=== PATIENT | male | born 1955 | race Caucasian/White ===

== ENCOUNTER 2016-12-18 11:34 | Observation (INO) | payer BC ==
[~2016-12-18] VITALS: Ht 190.5 cm; Wt 156.4 kg
[2016-12-18 12:51] LABS: BASO # 0.1 (0.0-0.2); BASO % 0.4 % (0.0-2.0); EOS # 0.1 (0.0-0.7); EOS % 0.3 % (0-4.0); GRAN # 10.7 (1.4-6.5); GRAN % 72.3 % (42.2-75.2); HEMATOCRIT 45.9 % (42.0-52.0); HEMOGLOBIN 15.2 g/dl (13.5-18.0); LYMPH # 2.9 (1.2-3.4); LYMPH % 19.7 % (20.0-51.0); MEAN CELL VOLUME 94 fl (80.0-100.0); MEAN CORPUSCULAR HEMOGLOBIN 31 pg (27.0-31.0); MEAN CORPUSCULAR HGB CONC 33 g/dl (33.0-37.0); MEAN PLATELET VOLUME 9.5 fl (7.4-10.4); MONO # 0.9 (0.1-0.6); MONO % 6.1 % (1.7-9.3); PLATELET COUNT 303 K/mm3 (130-400); RED BLOOD COUNT 4.88 M/mm3 (4.20-5.60); REDCELL DISTRIBUTION WIDTH-CV 14.5 % (11.5-14.5); WHITE BLOOD COUNT 14.7 K/mm3 (4.8-10.8)
[2016-12-18] MEDS ORDERED: LEXAPRO20 MG PO (12:54)
[2016-12-18] MEDS ORDERED: DITROPAN 5MG TAB5 MG PO ×2 (12:54→12:56)
[2016-12-18] MEDS ORDERED: JANTOVEN3 M1 PO (12:55)
[2016-12-18] MEDS ORDERED: PRILOTC PO (12:55)
[2016-12-18] MEDS ORDERED: TOPROL XL 25MG25 MG PO (12:55)
[2016-12-18] MEDS ORDERED: LASIX 40MG TABL40 MG PO (12:56)
[2016-12-18] MEDS ORDERED: LEXAPRO 10MG10 MG PO ×2 (12:56→12:57)
[2016-12-18 13:00] LABS: ADJUSTED CALCIUM 8.6 mg/dL (8.4-10.2); ALBUMIN 4.1 gm/dL (3.5-5.0); BILIRUBIN,TOTAL 0.9 mg/dL (0.0-1.0); CALCIUM 8.7 mg/dL (8.4-10.2); CREATININE, serum 0.43 mg/dL (0.66-1.25); POTASSIUM 3.8 mmol/L (3.4-5.0); TOTAL PROTEIN 7.5 gm/dL (6.4-8.2)
[2016-12-18 16:56] VITALS: BP 153/82; PULSE 62; TEMP 97.7
[2016-12-18 20:25] VITALS: BP 142/75; PULSE 66; TEMP 97.6
[2016-12-18 22:27] LABS: PH 8 (5-8); SQUAMOUS EPITHELIAL None Seen /hpf; URINE APPEARANCE Cloudy; URINE BACTERIA Moderate /hpf; URINE BILIRUBIN Negative (NEGATIVE); URINE BLOOD 3+ (NEGATIVE); URINE COLOR Amber; URINE GLUCOSE Negative (NEGATIVE); URINE KETONE Trace (NEGATIVE); URINE RBC >50 /hpf; URINE UROBILINOGEN Negative (NEGATIVE); URINE WBC >50 /hpf
[2016-12-18 22:49] VITALS: BP 138/60; PULSE 83; TEMP 99.5
[2016-12-19 03:26] VITALS: BP 118/58; PULSE 73; TEMP 98.7
[2016-12-19 07:36] VITALS: BP 133/72; PULSE 81; TEMP 98.6
[2016-12-19 11:33] VITALS: BP 108/52; PULSE 76; TEMP 98
[2016-12-19 11:43] LABS: BASO # 0.1 (0.0-0.2); BASO % 0.3 % (0.0-2.0); EOS # 0.1 (0.0-0.7); EOS % 0.4 % (0-4.0); GRAN # 14.1 (1.4-6.5); GRAN % 84.9 % (42.2-75.2); HEMATOCRIT 42.2 % (42.0-52.0); HEMOGLOBIN 13.8 g/dl (13.5-18.0); LYMPH # 1.3 (1.2-3.4); LYMPH % 7.8 % (20.0-51.0); MEAN CELL VOLUME 95 fl (80.0-100.0); MEAN CORPUSCULAR HEMOGLOBIN 31 pg (27.0-31.0); MEAN CORPUSCULAR HGB CONC 33 g/dl (33.0-37.0); MEAN PLATELET VOLUME 9.6 fl (7.4-10.4); MONO % 5.7 % (1.7-9.3); PLATELET COUNT 268 K/mm3 (130-400); RED BLOOD COUNT 4.44 M/mm3 (4.20-5.60); REDCELL DISTRIBUTION WIDTH-CV 14.7 % (11.5-14.5); WHITE BLOOD COUNT 16.6 K/mm3 (4.8-10.8)
== END 2016-12-19 14:00 | disposition home or self-care (01) ==
LOC: COL.ER 11:34 → MEDICAL 14:49
PROVIDERS: Emergency Medicine; Internal Medicine
DX: G97.1 Other reaction to spinal and lumbar puncture (principal); G44.40 Drug-induced headache, not elsewhere classified, not intractable; N31.9 Neuromuscular dysfunction of bladder, unspecified; G37.3 Acute transverse myelitis in demyelinating disease of central nervous system; E66.9 Obesity, unspecified; Z68.41 Body mass index [BMI] 40.0-44.9, adult; I10 Essential (primary) hypertension; G47.33 Obstructive sleep apnea (adult) (pediatric); M51.36 Other intervertebral disc degeneration, lumbar region; M50.30 Other cervical disc degeneration, unspecified cervical region; G82.20 Paraplegia, unspecified; Z87.891 Personal history of nicotine dependence
CPT/HCPCS: A4315; G0378; J1885; J2405; J2550; J7030